=== PATIENT | male | born 1955 | race Caucasian/White ===

== ENCOUNTER 2018-06-27 20:03 | Emergency (ER) | payer BC ==
[2018-06-27] MEDS ORDERED: Diphtheria,Pertussis(Acell),Tetanus Vaccine 0.5 ML SDV IM ONE (20:33)
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
[2018-06-27] MEDS ORDERED: Lidocaine 1% 20 ML MDV ONE (21:07)
== END 2018-06-27 21:30 | disposition home or self-care (01) ==
LOC: KA.ED 20:03
DX: S01.81XA Laceration without foreign body of other part of head, initial encounter (principal); S16.1XXA Strain of muscle, fascia and tendon at neck level, initial encounter; W23.0XXA Caught, crushed, jammed, or pinched between moving objects, initial encounter; Z23 Encounter for immunization
CPT/HCPCS: 12011; 70486; 72125; 90471; 90715; 99283-25

== ENCOUNTER 2024-12-25 18:11 | Emergency (ER) | payer MEDICARE, BC | END 2024-12-25 19:34 | disposition home or self-care (01) | LOC: KA.ED 18:11 | DX: S49.92XA Unspecified injury of left shoulder and upper arm, initial encounter (principal); I10 Essential (primary) hypertension; Z79.82 Long term (current) use of aspirin; Z79.899 Other long term (current) drug therapy; W17.89XA Other fall from one level to another, initial encounter; Y93.89 Activity, other specified | CPT/HCPCS: 73030-LT; 99283 ==